=== PATIENT | male | born 1970 | race African-American/Black ===

== ENCOUNTER 2018-06-27 09:05 | Emergency (ER) | payer MEDICAID, OTHER ==
[~2018-06-27] VITALS: Ht 180.3 cm; Wt 81.6 kg
[2018-06-27] MEDS ORDERED: methylPREDNISolone SOD SUCC 125 MG/2 ML VL IM ONE (10:00)
[2018-06-27] MEDS ORDERED: diphenhdrAMINE HCL 25 MG CAP PO ONE (10:00)
[2018-06-27] MEDS ORDERED: KETOROLAC TROMETH 60MG/2ML VIAL IM ONE (10:00)
[2018-06-27] MEDS ORDERED: cefTRIAXone SOD 1,000 MG VL ONE (10:22)
[2018-06-27] MEDS ORDERED: LIDOCAINE 2% (LOCAL ANESTH.) PF 5ml SDV ONE (10:22)
[2018-06-27] MEDS ORDERED: cefTRIAXone W LIDOCAINE 500 MG IM IM ONE (10:30)
[2018-06-27 11:19] VITALS: BP 136/88
== END 2018-06-27 11:25 | disposition home or self-care (01) ==
LOC: ER 09:12
DX: K13.0 Diseases of lips (principal); K02.9 Dental caries, unspecified
CPT/HCPCS: 96372; 99283; J0696; J1885; J2930; J2001

== ENCOUNTER 2020-01-18 00:14 | Inpatient (IN) | payer MEDICAID ==
[~2020-01-18] VITALS: Ht 180.3 cm; Wt 81.0 kg
[2020-01-18 01:56] LABS: Basophils # (auto) 0.1 10 ^3/uL (0-0.2); Basophils % (auto) 0.7 % (0.0-2.0); Eosinophils # (auto) 0.2 10 ^3/uL (0-0.8); Eosinophils % (auto) 1.8 % (0.0-7.0); Hematocrit 34.8 % (41.0-53.0); Hemoglobin 11.7 g/dL (13.5-17.5); Lymphocytes # (auto) 1.3 10 ^3/uL (0.4-5.4); Lymphocytes % (auto) 14.1 % (10.0-50.0); Mean Corpuscular Hemoglobin 33.7 pg (28.0-32.0); Mean Corpuscular Hgb Conc. 33.7 g/dL (32.0-36.0); Monocytes # (auto) 0.9 10 ^3/uL (0-1.3); Monocytes % (auto) 9.9 % (0.0-12.0); Neutrophils # (auto) 6.8 10 ^3/uL (1.6-8.6); Neutrophils % (auto) 73.5 % (37.0-80.0); Platelet Count (auto) 249 10^3/uL (140-450); Red Blood Cells 3.48 10^6/uL (4.5-5.90); Red Cell Distribution Width 12.2 % (11.8-14.3); White Blood Cell 9.3 10^3/uL (4.4-10.8)
[2020-01-18 02:26] LABS: Albumin 3.7 g/dL (3.4-5.0); Calcium 8.6 mg/dL (8.5-10.1); Potassium 3.8 mmol/L (3.5-5.1)
[2020-01-18 02:29] LABS: BUN/Creatinine Ratio 11.8; Bilirubin, Total 0.8 mg/dL (0.2-1.0); Total Protein 7.9 g/dL (6.4-8.2)
[2020-01-18] MEDS ORDERED: ONDANSETRON HCL 4 MG/2 ML VIAL IV ONE (06:15)
[2020-01-18] MEDS ORDERED: MORPHINE SULFATE 4 MG/ML SYR/VIAL IV ONE (06:15)
[2020-01-18] MEDS ORDERED: VANCOMYCIN 1GM/250ML 250 ML IV ONE (08:00)
[2020-01-18] MEDS ORDERED: MORPHINE SULF INJ 2 MG/ML SYRINGE 1ML IV ONE (08:00)
[2020-01-18] MEDS ORDERED: SODIUM CHLORIDE 0.9% 500 ML IV ONE (08:00)
[2020-01-18] MEDS ORDERED: SODIUM CHLORIDE 0.9% 1,000 ML IV ONE (08:00)
[2020-01-18] MEDS ORDERED: METOCLOPRAMIDE HCL 5MG/ml INJ 2ml VIAL IV ONE (08:00)
[2020-01-18 09:31] LABS: Urine Bacteria NONE SEEN /hpf (None Seen); Urine Blood Negative /uL (Negative); Urine Mucus FEW (None Seen); Urine Specific Gravity 1.027 (1.001-1.035); Urine WBC 1 /hpf (0 - 3)
[2020-01-18] MEDS ORDERED: MORPHINE SULF INJ 2 MG/ML SYRINGE 1ML IV PRN (10:30)
[2020-01-18] MEDS ORDERED: NITROGLYCERIN 0.4 MG SL TAB SL PRN (10:30)
[2020-01-18] MEDS ORDERED: ACETAMINOPHEN 500 MG TAB PO PRN (10:30)
[2020-01-18] MEDS ORDERED: cloNIDine HCL 0.1 MG TAB PO PRN (10:30)
[2020-01-18] MEDS ORDERED: ONDANSETRON HCL 4 MG/2 ML VIAL IV PRN (10:30)
[2020-01-18] MEDS: cefTRIAXone 1GM/50ML D5W 50 ML IV SCH (10:54)
--- NOTE | 2020-01-18 11:22 | NUR ---
REPORT RECEIVED FROM RICHARD IN ED. PATIENT BROUGHT UP TO ROOM 276A. HE IS ALERT AND ORIENT X4, VS WNL. NO COMPLAINTS OF PAIN IN THE LEG AT THIS TIME AND NO S/S OF DISTRESS. PATIENT WAS SHOWN HOW TO USE CALL LIGHT FOR TV, LIGHTS AND NURSING STATION FOR ANY NEEDS. HE VERBALIZED UNDERSTANDING. DISCUSSED POC WAS TO TREAT WITH ABX FOR CELLULITIS AND CONTROL PAIN AND PATIENT AGREED WITH THIS AND HAS NO FURTHER QUESTION/CONCERNS AT THIS TIME. BED LOW, LIGHT IN REACH.
[2020-01-18 13:00] VITALS: BP 125/74
[2020-01-18 13:47] VITALS: BP 125/75
[2020-01-18] MEDS: CLINDAMYCIN 300MG IV 50 ML IV SCH ×2 (14:28→22:02)
[2020-01-18] MEDS: HYDROcodone-ACET 5/325MG TAB PO PRN (16:34)
[2020-01-18 17:00] VITALS: BP 120/78
--- NOTE | 2020-01-18 19:35 | NUR ---
Opening Shift Note Assumed care of patient. Patient is awake, alert, and oriented x 4. No S/S of respiratory distress. Respirations are regular and non-labored. Pt denies pain at this time. Bed lowest position and locked, side rails up x 2, call light and bedside table are within reach. Instructed on POC and to call for assistance as needed. Will continue to monitor for changes Q1hr and PRN.
[2020-01-18 20:00] VITALS: BP 128/74
[2020-01-18 22:23] VITALS: BP 128/74
[2020-01-19] MEDS: MORPHINE SULF INJ 2 MG/ML SYRINGE 1ML IV PRN (02:56)
[2020-01-19 05:00] VITALS: BP 144/88
[2020-01-19] MEDS: CLINDAMYCIN 300MG IV 50 ML IV SCH ×3 (06:16→21:59)
[2020-01-19 07:07] LABS: Basophils # (auto) 0 10 ^3/uL (0-0.2); Basophils % (auto) 0.3 % (0.0-2.0); Eosinophils # (auto) 0.1 10 ^3/uL (0-0.8); Eosinophils % (auto) 1.5 % (0.0-7.0); Hematocrit 34.9 % (41.0-53.0); Hemoglobin 11.8 g/dL (13.5-17.5); Lymphocytes # (auto) 1.1 10 ^3/uL (0.4-5.4); Lymphocytes % (auto) 15.2 % (10.0-50.0); Mean Corpuscular Hemoglobin 33.7 pg (28.0-32.0); Mean Corpuscular Hgb Conc. 33.8 g/dL (32.0-36.0); Mean Corpuscular Volume 99.6 fL (80.0-100.0); Monocytes # (auto) 0.8 10 ^3/uL (0-1.3); Monocytes % (auto) 10.9 % (0.0-12.0); Neutrophils # (auto) 5.4 10 ^3/uL (1.6-8.6); Neutrophils % (auto) 72.1 % (37.0-80.0); Platelet Count (auto) 244 10^3/uL (140-450); Red Blood Cells 3.51 10^6/uL (4.5-5.90); Red Cell Distribution Width 12.1 % (11.8-14.3); White Blood Cell 7.5 10^3/uL (4.4-10.8)
[2020-01-19 07:30] LABS: Potassium 3.9 mmol/L (3.5-5.1)
--- NOTE | 2020-01-19 07:30 | NUR ---
Assumed care of Pt. He is sitting comfortably in bed, having breakfast. Denies any pain at this time. Bed on lowest position, call light within reach.
[2020-01-19 07:36] LABS: BUN/Creatinine Ratio 12.7; Calcium 8.3 mg/dL (8.5-10.1)
[2020-01-19 08:36] VITALS: BP 125/69
--- NOTE | 2020-01-19 10:30 | NUR ---
Assumed care of patient Received report from Navya WALDEN. Patient is resting in bed with eyes closed, no signs or symptoms of distress noted at this time. Bed in low and locked position, call light within reach. Will continue to monitor Q1 hour and PRN.
[2020-01-19] MEDS: cefTRIAXone 1GM/50ML D5W 50 ML IV SCH (10:59)
[2020-01-19] MEDS: FAMOTIDINE 20 MG TAB PO SCH (10:59)
--- NOTE | 2020-01-19 11:04 | NUR ---
urine collected and sent to lab
--- NOTE | 2020-01-19 11:14 | NUR ---
Patient ambulating in hallway
[2020-01-19 11:48] LABS: Amphetamine Screen, Urine POSITIVE (NEGATIVE); Barbiturate Scree,Urine NEGATIVE (NEGATIVE); Benzodiazephine Screen, Urine NEGATIVE (NEGATIVE); Cannabinoid Screen, Urine NEGATIVE (NEGATIVE); Cocaine Screen, Urine NEGATIVE (NEGATIVE); Phencyclidine Screen, Urine NEGATIVE (NEGATIVE)
[2020-01-19 11:55] LABS: Opiate Scree,Urine NEGATIVE (NEGATIVE)
[2020-01-19 12:59] VITALS: BP 135/70
[2020-01-19 16:26] VITALS: BP 145/89
--- NOTE | 2020-01-19 16:50 | NUR ---
ss consult Per ss consult advanced directive info. Patient has been provided with advanced directive. Addendum: 01/19/20 at 1651 by Lauren VILLARREAL Amended: Links added.
--- NOTE | 2020-01-19 18:55 | NUR ---
Closing Note Report given to date night sitter RN. No signs or symptoms of distress noted at this time.
--- NOTE | 2020-01-19 19:35 | NUR ---
Opening Shift Note Assumed care of patient. Patient is asleep at this time. No S/S of respiratory distress noted. Respirations are regular and non-labored. Bed in lowest position and locked, side rails up x 2, call light and bedside table are within reach. Pt will be instructed on POC and to call for assistance as needed. Will continue to monitor for changes Q1hr and PRN.
[2020-01-19 20:00] VITALS: BP 138/80
[2020-01-19 22:00] VITALS: BP 138/80
[2020-01-20] MEDS: MORPHINE SULF INJ 2 MG/ML SYRINGE 1ML IV PRN (00:35)
[2020-01-20 05:00] VITALS: BP 133/90
[2020-01-20] MEDS: CLINDAMYCIN 300MG IV 50 ML IV SCH ×3 (06:16→22:29)
--- NOTE | 2020-01-20 08:00 | NUR ---
Opening Shift Note Assumed care of patient, awake and alert. No S/S of distress/SOB or pain. Instructed on POC and to call for assist PRN, will continue to monitor for changes Q1hr and PRN.
[2020-01-20 09:00] VITALS: BP 127/75
[2020-01-20] MEDS: cefTRIAXone 1GM/50ML D5W 50 ML IV SCH (09:44)
[2020-01-20] MEDS: FAMOTIDINE 20 MG TAB PO SCH (09:45)
--- NOTE | 2020-01-20 15:17 | NUR ---
Patient is positive for MRSA on the wound. Dr. Lee informed, instructions received to continue antibiotics treatment.
--- NOTE | 2020-01-20 15:35 | NUR ---
Patient was placed on contact isolation and moved to room 283.
[2020-01-20 16:59] VITALS: BP 142/102
--- NOTE | 2020-01-20 19:15 | NUR ---
Opening Shift Note Assumed care of patient from day shift RN, patient awake and alert and oriented x4. No S/S of distress/SOB or pain. Instructed on POC and to call for assist PRN, safety measures in place bed in lowest position side rails x2 and call light with in reach. will continue to monitor for changes Q1hr and PRN.
[2020-01-20 20:00] VITALS: BP 132/89
[2020-01-20] MEDS: HYDROcodone-ACET 5/325MG TAB PO PRN (20:01)
--- NOTE | 2020-01-20 20:01 | NUR ---
patient complained of 6/10 pain to right leg norco administered at this time.
--- NOTE | 2020-01-20 21:01 | NUR ---
reassessed pain patient states 0/10 pain at this time.
[2020-01-20 22:00] VITALS: BP 132/89
--- NOTE | 2020-01-20 22:00 | NUR ---
IV insertion IV access obtained, via clean sterile technique by inserting 22 gauge catheter at left forearm after 2 attempt(s). IV secured properly. No trauma to site. Patient tolerated well. IV removal IV 18 gauge to left forearm DC'd with clean sterile technique, catheter fully intact. Pressure dressing applied to site. Patient tolerated well.
[2020-01-21 05:00] VITALS: BP 119/68
[2020-01-21] MEDS: CLINDAMYCIN 300MG IV 50 ML IV SCH ×2 (05:34→14:34)
[2020-01-21 08:00] VITALS: BP 125/79
[2020-01-21 09:00] VITALS: BP 125/79
[2020-01-21] MEDS: MORPHINE SULF INJ 2 MG/ML SYRINGE 1ML IV PRN (09:04)
[2020-01-21] MEDS: FAMOTIDINE 20 MG TAB PO SCH (09:05)
[2020-01-21] MEDS: cefTRIAXone 1GM/50ML D5W 50 ML IV SCH (09:05)
[2020-01-21 13:00] VITALS: BP 129/76
--- NOTE | 2020-01-21 14:27 | NUR ---
Nutrition Assessment Notes Please refer to link for full assessment notes. Est Energy needs: 3159-5254 kcals (20-23 kcal/kgBW) Est Protein needs: 65-81 gms/day (0.8-1.0 gm/kgBW) Will continue to monitor and reassess prn. Addendum: 01/21/20 at [address] Amended: Links added.
[2020-01-21] MEDS ORDERED: ATOR20TA50 PO (15:31)
[2020-01-21] MEDS ORDERED: PANT40TA2 PO (15:31)
[2020-01-21] MEDS ORDERED: METO-169 PO (15:31)
[2020-01-21] MEDS ORDERED: AMOX-277 PO (15:31)
[2020-01-21] MEDS ORDERED: THIA50CA PO (15:31)
[2020-01-21] MEDS ORDERED: ASPI81CH59 PO (15:31)
[2020-01-21] MEDS ORDERED: FOLITAB22 PO (15:31)
[2020-01-21] MEDS ORDERED: SULF400T11 PO (15:36)
[2020-01-21 16:00] VITALS: BP 129/76
--- NOTE | 2020-01-21 17:14 | NUR ---
Discharge instructions given as ordered. Encourage to follow up with PMD as instructed. All questions and concerns addressed. Patient verbalized understanding. Medication reconciliation form completed and copy given to patient. IV removed with catheter intact, pressure dressing applied. Patient taken to vehicle via wheelchair with all personal belongings, accompanied by this nurse No distress noted at time of departure.
[2020-01-21 17:21] VITALS: BP 138/88
== END 2020-01-21 17:10 | disposition home or self-care (01) | DRG 383 ==
LOC: ER 00:14 → OVERFLOW 00:15 → WEST WING 11:16
PROVIDERS: ADMIT Nurse Practitioner Acute Care; ATTEND Internal Medicine
DX: L03.115 Cellulitis of right lower limb (principal); D64.9 Anemia, unspecified; F12.90 Cannabis use, unspecified, uncomplicated; F41.9 Anxiety disorder, unspecified; T24.001A Burn of unspecified degree of unspecified site of right lower limb, except ankle and foot, initial encounter; L02.415 Cutaneous abscess of right lower limb; G89.29 Other chronic pain; M54.9 Dorsalgia, unspecified; X17.XXXA Contact with hot engines, machinery and tools, initial encounter; Y93.55 Activity, bike riding; Y92.89 Other specified places as the place of occurrence of the external cause; F15.10 Other stimulant abuse, uncomplicated; B95.62 Methicillin resistant Staphylococcus aureus infection as the cause of diseases classified elsewhere
CPT/HCPCS: 36415; 71046; 73700; 80048; 80053; 80307; 81001; 83605; 83735; 85025; 87040; 87077; 87081; 87186; 87205; 93005; 93971; 96361; 96365; 96375; G0378; J0696; J2405; J3490

== ENCOUNTER 2022-07-28 00:24 | Emergency (ER) | payer MEDICAID ==
[~2022-07-28] VITALS: Ht 175.3 cm; Wt 79.5 kg
[~2022-07-28 00:24] MED LIST: ASPI81CH59 PO; ATOR20TA50 PO; FOLITAB22 PO; METO-289 PO; PANT40TA2 PO; SULF400T11 PO; THIA50CA PO
[2022-07-28 01:59] LABS: Basophils # (auto) 0 10 ^3/uL (0-0.2); Basophils % (auto) 0.7 % (0.0-2.0); Eosinophils # (auto) 0.2 10 ^3/uL (0-0.8); Eosinophils % (auto) 3.4 % (0.0-7.0); Hematocrit 36.3 % (41.0-53.0); Hemoglobin 12.3 g/dL (13.5-17.5); Lymphocytes # (auto) 1.5 10 ^3/uL (0.4-5.4); Lymphocytes % (auto) 30.2 % (10.0-50.0); Mean Corpuscular Hemoglobin 33.6 pg (28.0-32.0); Mean Corpuscular Hgb Conc. 33.9 g/dL (32.0-36.0); Mean Corpuscular Volume 98.9 fL (80.0-100.0); Monocytes # (auto) 0.6 10 ^3/uL (0-1.3); Monocytes % (auto) 10.8 % (0.0-12.0); Neutrophils # (auto) 2.8 10 ^3/uL (1.6-8.6); Neutrophils % (auto) 54.9 % (37.0-80.0); Nucleated Red Blood Cells % 0.1 %; Red Blood Cells 3.67 10^6/uL (4.5-5.90); Red Cell Distribution Width 12.3 % (11.8-14.3); White Blood Cell 5.1 10^3/uL (4.4-10.8)
[2022-07-28] MEDS ORDERED: KETOROLAC TROMETH 30 MG/ML 1ML VIAL IM ONE (02:00)
[2022-07-28] MEDS ORDERED: cefTRIAXone SOD 1,000 MG VL IM ONE (02:00)
[2022-07-28] MEDS ORDERED: DICL-163 PO (02:10)
[2022-07-28] MEDS ORDERED: DOXY-286 PO (02:10)
[2022-07-28 02:24] LABS: Albumin 3.7 g/dL (3.4-5.0); Calcium 8.6 mg/dL (8.5-10.1); Potassium 3.6 mmol/L (3.5-5.1)
[2022-07-28 02:26] LABS: BUN/Creatinine Ratio 15.8 (10.0-20.0)
[2022-07-28 02:29] LABS: Bilirubin, Total 0.6 mg/dL (0.2-1.0); Total Protein 7.7 g/dL (6.4-8.2)
[2022-07-28 04:07] VITALS: BP 136/91
== END 2022-07-28 04:13 | disposition home or self-care (01) ==
LOC: ER 00:24
DX: N43.3 Hydrocele, unspecified (principal); N45.1 Epididymitis; F12.10 Cannabis abuse, uncomplicated
CPT/HCPCS: 36415; 76870; 80053; 85025; 96372; 99285; J0696; J1885